=== PATIENT | female | born 1995 | race Two or more races ===

== ENCOUNTER 2020-02-18 13:36 | Observation (INO) | payer MEDICAID ==
[2020-02-19] MEDS ORDERED: PREN-153 PO (15:10)
== END 2020-02-18 16:45 | disposition home or self-care (01) | DRG 566 ==
LOC: LDRP 13:36
PROVIDERS: ADMIT Specialist; ATTEND Specialist
DX: O48.0 Post-term pregnancy (principal); Z3A.40 40 weeks gestation of pregnancy
CPT/HCPCS: 59025; 76818; 81002; G0378

== ENCOUNTER 2020-02-19 13:10 | Observation (INO) | payer MEDICAID ==
[2020-02-19] MEDS ORDERED: PREN-153 PO (15:10)
== END 2020-02-19 16:00 | disposition home or self-care (01) | DRG 566 ==
LOC: LDRP 13:10
PROVIDERS: ADMIT Specialist; ATTEND Specialist
DX: O62.9 Abnormality of forces of labor, unspecified (principal); Z3A.40 40 weeks gestation of pregnancy
CPT/HCPCS: 59025; 76818; 81002; G0378

== ENCOUNTER 2020-02-21 17:41 | Observation (INO) | payer MEDICAID ==
[~2020-02-21 17:41] MED LIST: PREN-153 PO
== END 2020-02-21 19:23 | disposition home or self-care (01) | DRG 566 ==
LOC: LDRP 17:41
PROVIDERS: ADMIT Specialist; ATTEND Specialist
DX: O48.0 Post-term pregnancy (principal); Z3A.40 40 weeks gestation of pregnancy
CPT/HCPCS: 59025; 76818; 81002; G0378

== ENCOUNTER 2020-02-23 13:35 | Observation (INO) | payer MEDICAID | END 2020-02-23 15:30 | disposition home or self-care (01) | DRG 861 | LOC: LDRP 13:35 | PROVIDERS: ADMIT Specialist; ATTEND Specialist | DX: Z03.818 Encounter for observation for suspected exposure to other biological agents ruled out (principal); O48.0 Post-term pregnancy; O26.893 Other specified pregnancy related conditions, third trimester; R10.2 Pelvic and perineal pain; Z3A.40 40 weeks gestation of pregnancy | CPT/HCPCS: 59025; 76818; 81002; G0378; U0003 ==

== ENCOUNTER 2020-02-24 20:39 | Inpatient (IN) | payer MEDICAID ==
[~2020-02-24] VITALS: Ht 170.2 cm; Wt 70.8 kg
[2020-02-24] MEDS ORDERED: LACT. RINGERS/OXYTOCIN 20UNITS 1,000 ML IV SCH (20:49)
[2020-02-24] MEDS ORDERED: WITCH HAZEL-GLYCERIN PAD TOP PRN (21:00)
[2020-02-24] MEDS ORDERED: METHYLERGONOVINE MALEATE 0.2 MG/ML AMP IM PRN (21:00)
[2020-02-24] MEDS ORDERED: PENICILLIN G POT 5MIL/D5 50ML 50 ML IV ONE (21:00)
[2020-02-24] MEDS ORDERED: DERMOPLAST 60ML BOTTLE TOP PRN (21:00)
[2020-02-24] MEDS ORDERED: LIDOCAINE 2%HCL (LOCAL ANESTH.) INJ 20ML MDV ID ONE (21:00)
[2020-02-24] MEDS ORDERED: PHISODERM TOP SOLN 240ML BTL TOP PRN (21:00)
[2020-02-24] MEDS: LACTATED RINGER'S 1,000 ML IV SCH (21:49)
[2020-02-24 22:13] LABS: Basophils # (auto) 0 10 ^3/uL (0-0.2); Basophils % (auto) 0.3 % (0.0-2.0); Eosinophils # (auto) 0 10 ^3/uL (0-0.8); Eosinophils % (auto) 0.6 % (0.0-7.0); Hematocrit 39.8 % (36.0-46.0); Hemoglobin 13.2 g/dL (12.2-16.2); Lymphocytes # (auto) 1.9 10 ^3/uL (0.4-5.4); Mean Corpuscular Hemoglobin 30.5 pg (28.0-32.0); Mean Corpuscular Hgb Conc. 33.1 g/dL (32.0-36.0); Mean Corpuscular Volume 92.2 fL (80.0-100.0); Monocytes # (auto) 0.6 10 ^3/uL (0-1.3); Monocytes % (auto) 7.5 % (0.0-12.0); Neutrophils # (auto) 5.6 10 ^3/uL (1.6-8.6); Neutrophils % (auto) 68.6 % (37.0-80.0); Nucleated Red Blood Cells % 0.1 %; Platelet Count (auto) 199 10^3/uL (140-450); Red Blood Cells 4.31 10^6/uL (4.0-5.20); Red Cell Distribution Width 13.5 % (11.8-14.3); White Blood Cell 8.1 10^3/uL (4.4-10.8)
[2020-02-24] MEDS ORDERED: TERBUTALINE SULFATE 1 MG/ML 1ML VIAL SC ONE (22:15)
[2020-02-24 22:19] LABS: Urine Bacteria FEW /hpf (None Seen); Urine Blood Negative /uL (Negative); Urine Specific Gravity 1.016 (1.001-1.035); Urine WBC 14 /hpf (0 - 5)
[2020-02-24 22:27] LABS: Albumin 2.7 g/dL (3.4-5.0); Calcium 8.6 mg/dL (8.5-10.1); Potassium 3.6 mmol/L (3.5-5.1)
[2020-02-24 22:29] LABS: Amphetamine Screen, Urine NEGATIVE (NEGATIVE); Barbiturate Scree,Urine NEGATIVE (NEGATIVE); Benzodiazephine Screen, Urine NEGATIVE (NEGATIVE); Cannabinoid Screen, Urine NEGATIVE (NEGATIVE); Cocaine Screen, Urine NEGATIVE (NEGATIVE); Opiate Scree,Urine NEGATIVE (NEGATIVE); Phencyclidine Screen, Urine NEGATIVE (NEGATIVE)
[2020-02-24 22:30] LABS: BUN/Creatinine Ratio 18.9; Bilirubin, Total 0.4 mg/dL (0.2-1.0); Total Protein 6.8 g/dL (6.4-8.2)
[2020-02-24 22:31] LABS: INR 0.9 (0.9-1.15); Partial Thromboplastin Time 26.1 sec (23.0-31.2)
[2020-02-25] MEDS: PENICILLIN G POTASSIUM 2,500,000 UNITS in D5W 5% 50 ML IV SCH ×2 (01:49→05:43)
[2020-02-25] MEDS: LACTATED RINGER'S 1,000 ML IV SCH (01:49)
[2020-02-25] MEDS ORDERED: BUTORPHANOL TARTRATE 2 MG/1 ML VIAL IV PRN (05:15)
[2020-02-25] MEDS ORDERED: PROMETHAZINE HCL 25 MG/ML 1ML IM PRN (06:00)
[2020-02-25] MEDS ORDERED: LACT. RINGERS/OXYTOCIN 20UNITS 500 ML IV ONE (08:09)
[2020-02-25] MEDS ORDERED: DIPHENOXYLATE W/ATROPINE 2.5 MG TAB PO PRN (08:15)
[2020-02-25] MEDS ORDERED: ACETAMINOPHEN 325 MG TAB PO PRN (08:15)
[2020-02-25 08:55] VITALS: BP 126/71
[2020-02-25] MEDS ORDERED: LACT. RINGERS/OXYTOCIN 20UNITS 1,000 ML IV SCH (09:09)
[2020-02-25] MEDS ORDERED: DOCUSATE CALCIUM 240 MG CAP PO SCH (10:00)
[2020-02-25 11:00] VITALS: BP 107/61
[2020-02-25 14:35] VITALS: BP 113/63
[2020-02-25] MEDS: IBUPROFEN 600 MG TAB PO PRN ×2 (14:54→18:26)
[2020-02-25 18:48] VITALS: BP 116/65
[2020-02-25 23:06] VITALS: BP 104/65
[2020-02-26 03:00] VITALS: BP 92/50
[2020-02-26 05:06] LABS: RPR Non Reactive (Non Reactive)
[2020-02-26 06:32] VITALS: BP 106/54
[2020-02-26] MEDS: IBUPROFEN 600 MG TAB PO PRN (06:52)
== END 2020-02-26 10:10 | disposition home or self-care (01) | DRG 560 ==
LOC: LDRP 20:39
PROVIDERS: ADMIT Specialist; ATTEND Specialist
PROC: 10E0XZZ Delivery of Products of Conception, External Approach (ICD-10-PCS; principal; 2020-02-25)
PROC: 0W8NXZZ Division of Female Perineum, External Approach (ICD-10-PCS; 2020-02-25)
PROC: 3E033VJ Introduction of Other Hormone into Peripheral Vein, Percutaneous Approach (ICD-10-PCS; 2020-02-25)
DX: O69.81X0 Labor and delivery complicated by cord around neck, without compression, not applicable or unspecified (principal); Z37.0 Single live birth; Z3A.40 40 weeks gestation of pregnancy; O48.0 Post-term pregnancy
CPT/HCPCS: 36415; 59025; 59409; 80053; 80307; 81001; 84112; 85025; 85610; 85730; 86592; 86850; 86900; 86901; 96360; 96361; 96365; 96366; 96372; 96374; G0378; J2540; J2590; J7060